=== PATIENT | female | born 1945 | race Caucasian/White ===

== ENCOUNTER → 2016-07-23 | Outpatient (CLI) | payer OTHER ==
--- NOTE | ~2016-07-23 | MY11 ---
[facility] A Service of [facility] RADIOLOGY TEXT RESULTS PATIENT: JEANINE WATSON LOCATION: [facility] : 43 UNIT #: [id number] AGE: [address]: Monica De Luna MD SEX: F ORDER DR: [id number] [facility]. [place], [place] [address] [id number] O MR#: [id number] Acc #: [id number] NAME: JEANINE WATSON : 1945 SEX: F STUDY DATE/TIME: 07/23/2016 11:56 UNIT: [facility] ROOM: STUDY DESCRIPTION: MY Mammogram Screening Dig Ezekiel Attending Physician: Monica De Luna M.D. Referring Physician: Monica De Luna M.D. Ordering Physician: Monica De Luna M.D. Primary Care Physician: Monica De Luna M.D. MEDICAL IMAGING REPORT This report is preliminary unless electronic signature is present EXAM bilateral digital screening with CAD HISTORY Routine screening. No current complaints. No family history of breast cancer. COMPARISON 02/04/2013, 03/29/2010, 01/26/2009 FINDINGS MLO and CC digital views of each breast were obtained. The exam was reviewed with an FDA-approved CAD device. Breasts are heterogenously dense. There are no masses or abnormal calcifications. There has been no change. IMPRESSION No change and no evidence of malignancy. Patients over the age of 40 are entered into a reminder system with target due date for the next mammogram. A result letter will also be sent to the patient. BIRADS: 2 Benign Finding Dictated by... Rob Morataya M.D. THIS IS AN ELECTRONICALLY VERIFIED REPORT Rob Morataya M.D. at 07/24/2016 6:27 AM DWAYNE/yuliya TD: 07/23/2016 15:46 [facility] A Service of [facility] RADIOLOGY TEXT RESULTS PATIENT: JEANINE WATSON LOCATION: [facility] : 43 UNIT #: [id number] AGE: [address]: Monica De Luna MD SEX: F ORDER DR: JOB #: [id number] MEDICAL IMAGING REPORT Page 1 of 1 COPY
== END | disposition home or self-care (01) ==
LOC: CWCC 11:33
DX: Z12.31 Encounter for screening mammogram for malignant neoplasm of breast (principal)
CPT/HCPCS: G0202